=== PATIENT | male | born 1990 | race Caucasian/White ===

== ENCOUNTER 2024-11-27 08:31 | Emergency (ER) | payer OTHER, SELFPAY ==
[2024-11-27 08:35] VITALS: BP 161/113
[2024-11-27 09:30] VITALS: BMI 32.2
--- NOTE | 2024-11-27 09:32 | EDRN ---
Ariella VILLALOBOS in room w/ pt.;
--- NOTE | 2024-11-27 09:33 | EDRN ---
Pt states he is unable to do his job related to pain and hemorrhoid is protruded and will not retract and go back in.
--- NOTE | 2024-11-27 09:47 | ED.GENMED ---
History of Present Illness
General
Chief Complaint: Anal/Rectal Problem
Source: patient
Exam Limitations: none
Time Seen by Provider: 11/27/24 09:23
Nursing documentation reviewed up to this point in time: agreed with
History of Present Illness
History of Present Illness:
34 y/o M
h/o hemorrhoids
saw colorectal [facility] 1 year ago, no procedures
syas he tries to use high fiber diet and stool softeners
has had issues the past 1 mo with pain in his rectum, some bleeding with BM on toilet paper and feels the hemorrhoid out
he says last week he 'threw his back out' and was lying around more and noticed that he had more pain and wasn't able to push the hemorrhoid back in like usual
now in a lot of pain thi smorning after BM
no AC
no abdominal pain
no fever
nothing in rectum
uses topical cream stomies
Past History
Past History
ED Past Medical History: None
ED Past Surgical History: None
Social History
Tobacco: Smoker
Alcohol: None
Drug: None
Personal: Single
Living: with family
Employment: Employed
Family History
Family History: Negative Diabetes, Hypertension, Early CAD, Asthma or Cancer
Review of Systems
Review of Systems
Allergies reviewed?: Yes
All Other Systems: Not applicable
Phy Exam
Physical Exam
Physical Exam:
GENERAL: Alert , in no apparent distress
EYE: pupils equal and reactive
NECK: Supple
ENT: o/p clr, mmm.
CARDIAC: Regular rate and rhythm .
LUNGS: Clear breath sounds bilaterally, no acute respiratory distress, no wheezes/rales/rhonchi
ABDOMEN: Soft, without focal tenderness, no r/g, no cvat, normal bowel sounds
retum:
prolasped segment of rectum, about golf ball size; tender
no bleeding
also with small external hemrrhoid nonthrombosed;
NEUROLOGICAL: Alert and oriented, no focal neuro deficits
SKIN: Warm and dry, skin intact.
MUSCULOSKELETAL: No edema, well perfused. neg davon's sign
PSYCH: Normal and appropriate interaction.
Course
Orders/Labs/Results
Orders:
Orders
11/27/24 09:45
HYDROmorphone [Dilaudid] 1 mg IV NOW STA
11/27/24 09:50
HYDROmorphone [Dilaudid] 0.5 mg IV NOW STA
Vital Signs
Initial and Last Documented VS:
Initial Vital Signs
Temp Pulse Resp BP Pulse Ox
37.1 C 83 18 161/113 97
11/27/24 08:35 11/27/24 08:35 11/27/24 08:35 11/27/24 08:35 11/27/24 08:35
Last Documented Vital Signs
Temp Pulse Resp BP Pulse Ox
37.1 C 77 16 155/100 100
11/27/24 08:35 11/27/24 10:03 11/27/24 10:03 11/27/24 10:03 11/27/24 10:03
MDM/Problems Addressed
Differential Diagnosis Includes:
hemorrhoid, rectal prolapse
MDM/Problems Addressed:
roberto ordoñez
34 y/o M h/o ADD, alcohol use
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
has had hemorrhoids in the past, never treated surgically
in the past 1 mo more pain and feels that he has to keep reducing the hemorrhoid, with some bleeding with BM
the past 2 days he has had significatn pain and inc in size
it appears that it is a rectal prolapse; but he also has external nonthrombosed hemorrhoid
no bleeding
it was prolapsed about half golf ball size
reduced with sugar and pain meds
still has small hemorrhoid externally it seems
pain controlled
d/w dr mckeon
suppositoriees, sitz baths, recticare cream
f/u
metamucil,
*Critical Care Note
Total Time (30-74mins, 75-104mins- exclusive of procedures): Not Applicable
ED Attending Note
-
Portions of this chart may have been created with voice recognition software.� Occasional wrong word or��sound alike� substitutions may have occurred due to the inherent limitations of voice recognition software.
Discharge Plan
Departure
Patient Disposition: Home (Routine Discharge)
Date of Disposition: 11/27/24
Time of Disposition: 10:29
Patient with high blood pressure during this ER visit?: Yes
Condition: Fair
Covid-19: Not Applicable
Discharge Problem:
Hemorrhoid, Rectal prolapse
Instructions: Hemorrhoids (DC), How to Do a Sitz Bath
Prescriptions:
New
Preparation H(pe,cb) 0.25-88.44 % suppository
1 supp OR DAILY PRN (Reason: hemorrhoids) Qty: 12 0RF
No Action
amoxicillin-pot clavulanate 875 MG/125 MG tablet
1 tab PO Q12 Qty: 20 0RF
lidocaine 1 PATCH adhesive patch,medicated
1 patch topical DAILY Qty: 7 0RF
Rx Instructions:
ON FOR 12 HOURS, OFF FOR 12 HOURS
cyclobenzaprine 10 MG tablet
10 mg PO TIDPRN PRN (Reason: pain) Qty: 12 0RF
Referrals:
Moises Mckeon MD [Active] - Follow up in 5-7 days ([facility])
UNKNOWN - PT DOES,NOT KNOW [Family Provider] -
Stand Alone Forms: Return to Work
Activity Restrictions/Additional Instructions:
IT SEEMS THAT IT WAS YOUR RECTUM THAT WAS PROLPASED; BUT IT IS POSSIBLE IT COULD BE AN INTERNAL HEMORRHOID THAT WAS SEGMENTED;
FOLLOW UP WITH COLORECTAL SURGEON IN THE OFFICE
CALL TODAY AND SAY THAT I SPOKE WITH DR MCKEON ABOUT YOU, THAT YOU WERE IN THE ER
METAMUCIL ONCE A DAY TO KEEP STOOLS SOFT
IF FIRM, TRY MIRALAX ONCE A DAY OR EVERY OTHER DAY TO KEEP STOOLS MOVING IF YOU ARE CONSTIPATED
TRY A SITZ BATH - BUY ONE AT A PHARMACY OR [facility]; DO SOAKS SEVERAL TIMES A DAY
RETURN FOR ANY CONCERNS, REPEATED PAIN/PROLAPSE, SEVERE BLEEDING, FEVER, ETC
TYLENOL AND MOTRIN FOR PAIN
Interventions
Interventions:
*Risk Screen - Suicide Last Done: 11/27/24 08:40
*General Assessment Last Done: 11/27/24 08:40
*Neglect/Abuse Screening Last Done: 11/27/24 08:40
ED- Fall Risk Assessment Last Done: 11/27/24 09:32
*ED COVID-19 Vaccine History Last Done: 11/27/24 08:40
*Nursing Disposition Last Done: 11/27/24 10:55
SP-Nnanik-Vbhhrwfkvp Assessment Last Done: 11/27/24 09:37
ED-Skin Assessment Last Done: 11/27/24 09:32
Discharge Date and Time
Discharge Date/Time: 11/27/24 11:37
Print Language: TUVALUAN
[2024-11-27] MEDS: DILAUDID 0.5 MG IV (09:58)
[2024-11-27 10:03] VITALS: BP 155/100
--- NOTE | 2024-11-27 10:08 | EDRN ---
Ariella VILLALOBOS in room w/ pt
--- NOTE | 2024-11-27 10:35 | EDRN ---
Ariella VILLALOBOS in room w/ pt.
--- NOTE | 2024-11-27 11:11 | EDRN ---
Pt discharged and awaiting a ride. Dr. Hazel informed Ariella VILLALOBOS that pt can take suppositories. Ariella VILLALOBOS placed order for suppository for pt at his pharmacy. Pt was informed.
== END 2024-11-27 11:37 | disposition home or self-care (01) ==
LOC: EMR 08:31
PROVIDERS: EMERGENCY PHYSICIAN Emergency Medicine
DX: K62.3 Rectal prolapse (principal); K64.8 Other hemorrhoids; R03.0 Elevated blood-pressure reading, without diagnosis of hypertension; F17.200 Nicotine dependence, unspecified, uncomplicated
CPT/HCPCS: 99284; 96374